=== PATIENT | male | born 1975 | race Caucasian/White ===

== ENCOUNTER 2022-08-04 14:17 | Outpatient (CLI) | payer MEDICARE, OTHER | END 2022-08-04 14:18 | disposition home or self-care (01) | LOC: RAD 14:17 | PROVIDERS: ATTEND Internal Medicine Critical Care Medicine | DX: R06.00 Dyspnea, unspecified (principal); J98.4 Other disorders of lung | CPT/HCPCS: 71046 ==

== ENCOUNTER 2024-07-15 13:09 | Outpatient (CLI) | payer MEDICARE, MEDICAID | END 2024-07-15 13:10 | disposition home or self-care (01) | LOC: RAD 13:09 | PROVIDERS: ATTEND Internal Medicine Critical Care Medicine | DX: R06.00 Dyspnea, unspecified (principal) | CPT/HCPCS: 71046 ==

== ENCOUNTER 2024-08-28 13:44 | Inpatient (IN) | payer MEDICARE, MEDICAID ==
[~2024-08-28 13:44] MED LIST: Azithromycin 500 MG VIAL ONE; Cefepime 2 GM VIAL ONE
[2024-08-29] MEDS ORDERED: Piperacillin/Tazobactam 3.375 GM VIAL ONE ×2 (10:25→14:18)
[2024-08-29] MEDS ORDERED: Vancomycin 1 GM/200 ML (FROZEN) BAG ONE (11:07)
[2024-08-29] MEDS ORDERED: Ondansetron ODT 4 MG TAB PO PRN (17:08)
[2024-08-29] MEDS ORDERED: Guaifenesin DM 100-10/5 ML UDCUP PO PRN (17:08)
[2024-08-29] MEDS ORDERED: Senokot S 8.6-50 MG TAB PO PRN (17:18)
[2024-08-29 18:15] VITALS: BMI 19.9
[2024-08-29] MEDS: Sodium Chloride 0.9% 100 ML ONE ×3 (19:01→19:02)
[2024-08-29] MEDS: Cefepime 2 GM VIAL ONE (19:01)
[2024-08-29] MEDS: Azithromycin 500 MG VIAL ONE (19:01)
[2024-08-29] MEDS: Piperacillin/Tazobactam 3.375 GM VIAL ONE ×2 (19:02)
[2024-08-29] MEDS: Vancomycin 1 GM/200 ML (FROZEN) BAG ONE (19:02)
[2024-08-29] MEDS: Piperacillin/Tazobactam 3.375 GM in Sodium Chloride 0.9% 100 ML IVPB SCH (21:52)
[2024-08-30] MEDS: Levothyroxine Sodium 50 MCG TAB PO SCH (06:02)
[2024-08-30] MEDS ORDERED: Piperacillin/Tazobactam 3.375 GM VIAL ONE (06:05)
[2024-08-30] MEDS ORDERED: Levothyroxine Sodium 50 MCG TAB ONE (06:05)
[2024-08-30 06:55] LABS: #Basophils 0.06 10x3/uL (0.0-0.2); #Eosinophils 0.06 10x3/uL (0.0-0.7); #Monocytes 0.91 10x3/uL (0.11-0.59); #Neutrophils 11.58 10x3/uL (1.40-6.50); %Basophils 0.4 % (0.0-1.0); %Eosinophils 0.4 % (0.0-10.0); %Lymphocytes 7.7 % (21.0-51.0); %Monocytes 6.6 % (0.0-10.0); %Neutrophils 84.1 % (42.0-75.0); Hematocrit 38.9 % (42.0-52.0); Hemoglobin 13.3 g/dL (14.0-18.0); Mean Corpuscular HGB CONC 34.2 g/dL (32.0-36.0); Mean Corpuscular Hemoglobin 32.9 pg (27.0-31.0); Mean Corpuscular Volume 96.3 fL (78.0-98.0); Mean Platelet Volume 10.6 fL (7.4-10.4); Platelet Count 248 10x3/uL (130-400); RBC Distribution Width 14.4 % (11.5-14.5); Red Blood Cell (RBC) Count 4.04 mill/uL (4.70-6.10); White Blood Cell (WBC) Count 13.78 10x3/uL (4.8-10.8)
[2024-08-30 08:09] LABS: Anion Gap 10 mmol/L (10-20); BUN (Urea Nitrogen) 20 mg/dL (8.9-20.6); Calc. Creatinine Clearance 58 mL/min (70-130); Calcium 8.4 mg/dL (7.8-10.44); Carbon Dioxide 26 mmol/L (22-29); Chloride 105 mmol/L (98-107); Estimated GFR 98; Glucose 101 mg/dL (70-105); Potassium 4.3 mmol/L (3.5-5.1); Sodium 137 mmol/L (136-145)
[2024-08-30 08:11] LABS: Lactic Acid 0.95 mmol/L (0.5-2.2)
[2024-08-30 08:30] LABS: #Basophils 0.04 10x3/uL (0.0-0.2); %Basophils 0.8 % (0.0-1.0); %Eosinophils 3.9 % (0.0-10.0); %Lymphocytes 44.7 % (21.0-51.0); %Monocytes 7.7 % (0.0-10.0); %Neutrophils 42.3 % (42.0-75.0); Hematocrit 38.9 % (42.0-52.0); Hemoglobin 12.9 g/dL (14.0-18.0); Mean Corpuscular HGB CONC 33.2 g/dL (32.0-36.0); Mean Corpuscular Volume 96.5 fL (78.0-98.0); Mean Platelet Volume 10.3 fL (7.4-10.4); Platelet Count 228 10x3/uL (130-400); RBC Distribution Width 14.1 % (11.5-14.5); Red Blood Cell (RBC) Count 4.03 mill/uL (4.70-6.10)
[2024-08-30 08:56] LABS: Anion Gap 10 mmol/L (10-20); BUN (Urea Nitrogen) 19 mg/dL (8.9-20.6); Calc. Creatinine Clearance 45 mL/min (70-130); Calcium 8.4 mg/dL (7.8-10.44); Carbon Dioxide 26 mmol/L (22-29); Chloride 104 mmol/L (98-107); Estimated GFR 73; Glucose 101 mg/dL (70-105); Potassium 4.1 mmol/L (3.5-5.1); Sodium 136 mmol/L (136-145)
[2024-08-30] MEDS: Vancomycin 1 GM in Premix 1 BAG IVPB SCH (14:06)
[2024-08-30] MEDS: FLU (Fluarix Triv) TS24-25(6MOS UP)/PF 45 MCG/0.5 ML Syringe IM ONE (14:15)
[2024-08-30 16:01] LABS: Anion Gap 12 mmol/L (10-20); BUN (Urea Nitrogen) 19 mg/dL (8.9-20.6); Calc. Creatinine Clearance 59 mL/min (70-130); Calcium 8.6 mg/dL (7.8-10.44); Carbon Dioxide 23 mmol/L (22-29); Chloride 106 mmol/L (98-107); Estimated GFR 99; Glucose 107 mg/dL (70-105); Lactic Acid 2.14 mmol/L (0.5-2.2); Potassium 4.3 mmol/L (3.5-5.1); Sodium 137 mmol/L (136-145)
[2024-08-30 18:19] LABS: #Basophils 0.04 10x3/uL (0.0-0.2); %Basophils 0.4 % (0.0-1.0); %Eosinophils 0.6 % (0.0-10.0); %Monocytes 3.9 % (0.0-10.0); %Neutrophils 77.7 % (42.0-75.0); Hematocrit 39.8 % (42.0-52.0); Hemoglobin 13.3 g/dL (14.0-18.0); Mean Corpuscular HGB CONC 33.4 g/dL (32.0-36.0); Mean Corpuscular Hemoglobin 32.1 pg (27.0-31.0); Mean Corpuscular Volume 96.1 fL (78.0-98.0); Mean Platelet Volume 10.4 fL (7.4-10.4); Platelet Count 264 10x3/uL (130-400); RBC Distribution Width 14.5 % (11.5-14.5); Red Blood Cell (RBC) Count 4.14 mill/uL (4.70-6.10)
[2024-08-31] MEDS: Vancomycin HCl 500 MG in Sodium Chloride 0.9% 100 ML IVPB SCH (00:50)
[2024-08-31] MEDS: Cefepime 1 GM in Sodium Chloride 0.9% 100 ML IVPB SCH (15:27)
[2024-08-31] MEDS: LevoFLOXacin 750 mg/D5W 750 MG in Premix 1 BAG IVPB SCH ×2 (16:53→17:06)
[2024-08-31] MEDS: Acetaminophen 325 MG TAB PO PRN (20:46)
[2024-09-01] MEDS: Floranex 1 GM Packet PO SCH (08:40)
[2024-09-01 09:52] LABS: #Basophils 0.04 10x3/uL (0.0-0.2); %Basophils 0.7 % (0.0-1.0); %Lymphocytes 50.3 % (21.0-51.0); %Monocytes 6.2 % (0.0-10.0); %Neutrophils 36.6 % (42.0-75.0); Hematocrit 39.1 % (42.0-52.0); Hemoglobin 13.2 g/dL (14.0-18.0); Mean Corpuscular HGB CONC 33.8 g/dL (32.0-36.0); Mean Corpuscular Volume 94.7 fL (78.0-98.0); Mean Platelet Volume 10.5 fL (7.4-10.4); Platelet Count 233 10x3/uL (130-400); RBC Distribution Width 14.1 % (11.5-14.5); Red Blood Cell (RBC) Count 4.13 mill/uL (4.70-6.10)
[2024-09-01 10:10] LABS: Anion Gap 13 mmol/L (10-20); BUN (Urea Nitrogen) 16 mg/dL (8.9-20.6); Calc. Creatinine Clearance 58 mL/min (70-130); Calcium 8.6 mg/dL (7.8-10.44); Carbon Dioxide 24 mmol/L (22-29); Chloride 105 mmol/L (98-107); Estimated GFR 97; Glucose 77 mg/dL (70-105); Sodium 138 mmol/L (136-145)
[2024-09-01] MEDS: Cefepime 2 GM in Sodium Chloride 0.9% 100 ML IVPB SCH (11:52)
[2024-09-01] MEDS: LevoFLOXacin 750 mg/D5W 750 MG in Premix 1 BAG IVPB SCH (17:18)
[2024-09-02 04:37] LABS: Vancomycin, Random 28.6 ug/mL (See Comment)
[2024-09-02 07:54] VITALS: TEMP 97.5
[2024-09-02 14:27] VITALS: BP 115/82
[2024-09-03] MEDS ORDERED: LevoFLOXacin 750 mg/D5W 750 MG in Premix 1 BAG IVPB SCH (17:00)
== END 2024-09-02 14:16 | disposition home or self-care (01) | DRG 689 ==
LOC: T4-B 13:44 → UNDODISIN 14:47
PROVIDERS: ADMIT Internal Medicine; ATTEND Hospitalist
DX: N39.0 Urinary tract infection, site not specified (principal); G93.41 Metabolic encephalopathy; J18.9 Pneumonia, unspecified organism; E03.9 Hypothyroidism, unspecified; Z98.890 Other specified postprocedural states; Q90.9 Down syndrome, unspecified; Z79.899 Other long term (current) drug therapy
CPT/HCPCS: 36415; 70450; 71045; 80048; 80202; 82565; 83605; 84145; 85025; 87040; 87081; J0456; J0692; J1956; J2543; J3370; J3370-JW

== ENCOUNTER 2024-09-03 10:52 | Inpatient (IN) | payer MEDICARE, MEDICAID ==
[2024-09-03] MEDS ORDERED: LORazepam 2 MG/ML SYR.(CARPUJECT) ONE (11:34)
[2024-09-03 12:05] LABS: #Basophils 0.05 10x3/uL (0.0-0.2); %Basophils 0.8 % (0.0-1.0); %Eosinophils 1.8 % (0.0-10.0); %Lymphocytes 31.9 % (21.0-51.0); %Monocytes 6.1 % (0.0-10.0); %Neutrophils 59.1 % (42.0-75.0); Hematocrit 39.2 % (42.0-52.0); Hemoglobin 13.5 g/dL (14.0-18.0); Mean Corpuscular HGB CONC 34.4 g/dL (32.0-36.0); Mean Corpuscular Hemoglobin 32.6 pg (27.0-31.0); Mean Corpuscular Volume 94.7 fL (78.0-98.0); Mean Platelet Volume 9.7 fL (7.4-10.4); Platelet Count 231 10x3/uL (130-400); Red Blood Cell (RBC) Count 4.14 mill/uL (4.70-6.10)
[2024-09-03 12:20] LABS: Acetaminophen Less than 10 mcg/mL (Less than 10); Alcohol Less than 10.0 mg/dL (Less than 10); Salicylate Less than 8.0 mg/dL (Less than 8.0)
[2024-09-03 12:21] LABS: ALT (SGPT) 21 U/L (8-55); AST (SGOT) 19 U/L (5-34); Albumin 2.8 g/dL (3.5-5.0); Alkaline Phosphatase 223 U/L (40-110); Anion Gap 10 mmol/L (10-20); BUN (Urea Nitrogen) 16 mg/dL (8.9-20.6); Bilirubin, Total 0.2 mg/dL (0.2-1.2); Calc. Creatinine Clearance 0 mL/min (70-130); Calcium 8.3 mg/dL (7.8-10.44); Carbon Dioxide 25 mmol/L (22-29); Chloride 103 mmol/L (98-107); Estimated GFR 93; Globulin 4.2 g/dL (2.4-3.5); Glucose 94 mg/dL (70-105); Potassium 3.9 mmol/L (3.5-5.1); Sodium 134 mmol/L (136-145)
[2024-09-03 13:26] LABS: Troponin I Less than 0.010 ng/mL (< 0.028)
[2024-09-03] MEDS ORDERED: Sodium Chloride 0.9% 100 ML ONE (13:45)
[2024-09-03] MEDS ORDERED: Cefepime 2 GM VIAL ONE (13:45)
[2024-09-03] MEDS ORDERED: Benzonatate 100 MG CAP PO PRN (17:27)
[2024-09-03] MEDS ORDERED: Bisacodyl 10 MG SUPP PR PRN (17:28)
[2024-09-03] MEDS ORDERED: Ondansetron ODT 4 MG TAB PO PRN (17:28)
[2024-09-03] MEDS ORDERED: Ipratropium/Albuterol 3 ML NEB NEB PRN (17:28)
[2024-09-03] MEDS ORDERED: Acetaminophen 325 MG TAB PO PRN (17:28)
[2024-09-03] MEDS ORDERED: Ondansetron PF 4 MG/2 ML Vial IVP PRN (17:28)
[2024-09-03] MEDS ORDERED: Acetaminophen 650 MG Suppository PR PRN (17:28)
[2024-09-03] MEDS ORDERED: Senokot S 8.6-50 MG TAB PO PRN (17:28)
[2024-09-03] MEDS ORDERED: Lorazepam 2 MG/ML VIAL SLOW IVP PRN (17:28)
[2024-09-04] MEDS: Cefepime 1 GM in Sodium Chloride 0.9% 100 ML IVPB SCH (02:19)
[2024-09-04 05:52] VITALS: BMI 17.9
[2024-09-04 08:12] LABS: #Basophils 0.05 10x3/uL (0.0-0.2); %Basophils 0.9 % (0.0-1.0); %Lymphocytes 44.8 % (21.0-51.0); %Monocytes 6.3 % (0.0-10.0); %Neutrophils 44.6 % (42.0-75.0); Hematocrit 38.5 % (42.0-52.0); Hemoglobin 13.2 g/dL (14.0-18.0); Mean Corpuscular HGB CONC 34.3 g/dL (32.0-36.0); Mean Corpuscular Hemoglobin 32.1 pg (27.0-31.0); Mean Corpuscular Volume 93.7 fL (78.0-98.0); Mean Platelet Volume 9.8 fL (7.4-10.4); Platelet Count 217 10x3/uL (130-400); Red Blood Cell (RBC) Count 4.11 mill/uL (4.70-6.10)
[2024-09-04 08:33] LABS: Anion Gap 13 mmol/L (10-20); BUN (Urea Nitrogen) 11 mg/dL (8.9-20.6); Calc. Creatinine Clearance 66 mL/min (70-130); Calcium 8.6 mg/dL (7.8-10.44); Carbon Dioxide 25 mmol/L (22-29); Chloride 107 mmol/L (98-107); Estimated GFR 108; Glucose 88 mg/dL (70-105); Potassium 3.7 mmol/L (3.5-5.1); Sodium 141 mmol/L (136-145)
[2024-09-04] MEDS: Acidophilus Lactiobac CAPSULE PO SCH (12:04)
[2024-09-05] MEDS: Saccharomyces boulardii 250 MG CAP PO SCH (08:52)
[2024-09-05 14:34] VITALS: BMI 19.8
[2024-09-05] MEDS: Lorazepam 2 MG/ML VIAL SLOW IVP SCH (14:37)
[2024-09-06] MEDS: Levothyroxine Sodium 50 MCG TAB PO SCH (06:36)
[2024-09-06] MEDS ORDERED: Lorazepam 2 MG/ML VIAL SLOW IVP SCH (09:15)
[2024-09-06] MEDS: QUEtiapine 25 MG TAB PO SCH (21:51)
[2024-09-07 11:05] LABS: #Basophils 0.06 10x3/uL (0.0-0.2); %Basophils 0.8 % (0.0-1.0); %Eosinophils 1.5 % (0.0-10.0); %Lymphocytes 37.3 % (21.0-51.0); %Monocytes 7.1 % (0.0-10.0); %Neutrophils 52.9 % (42.0-75.0); Hematocrit 40.1 % (42.0-52.0); Hemoglobin 13.6 g/dL (14.0-18.0); Mean Corpuscular HGB CONC 33.9 g/dL (32.0-36.0); Mean Corpuscular Hemoglobin 32.5 pg (27.0-31.0); Mean Corpuscular Volume 95.9 fL (78.0-98.0); Mean Platelet Volume 9.5 fL (7.4-10.4); Platelet Count 193 10x3/uL (130-400); RBC Distribution Width 14.2 % (11.5-14.5); Red Blood Cell (RBC) Count 4.18 mill/uL (4.70-6.10)
[2024-09-07 11:49] LABS: Anion Gap 14 mmol/L (10-20); BUN (Urea Nitrogen) 20 mg/dL (8.9-20.6); Calc. Creatinine Clearance 64 mL/min (70-130); Calcium 8.7 mg/dL (7.8-10.44); Carbon Dioxide 24 mmol/L (22-29); Chloride 106 mmol/L (98-107); Estimated GFR 107; Glucose 77 mg/dL (70-105); Magnesium 2.2 mg/dL (1.6-2.6); Phosphorus 3.4 mg/dL (2.3-4.7); Potassium 4.1 mmol/L (3.5-5.1); Sodium 140 mmol/L (136-145)
[2024-09-07] MEDS: metroNIDAZOLE 500 MG TAB PO SCH (15:41)
[2024-09-07] MEDS: Melatonin 3 MG TAB PO SCH (21:00)
[2024-09-07] MEDS: Lorazepam 2 MG/ML VIAL SLOW IVP SCH (22:05)
[2024-09-08] MEDS: levETIRAcetam 500 MG TAB PO SCH (16:56)
[2024-09-08] MEDS ORDERED: levETIRAcetam 500 MG TAB PO SCH (21:00)
[2024-09-09] MEDS: Enoxaparin 30 MG (0.3 mL) SYRINGE SC SCH (20:04)
[2024-09-10] MEDS ORDERED: Dexamethasone 20 MG/5 ML VIAL ONE (12:50)
[2024-09-10] MEDS ORDERED: ePHEDrine Sulfate 50 MG/10 ML VIAL ONE (12:50)
[2024-09-10] MEDS ORDERED: PROPOFOL 200 MG/20 ML VIAL ONE (12:50)
[2024-09-10] MEDS ORDERED: Ondansetron PF 4 MG/2 ML Vial ONE (12:50)
[2024-09-10] MEDS ORDERED: Lidocaine 1% PF 5 ML VIAL ONE (12:50)
[2024-09-10] MEDS: levETIRAcetam 500 MG TAB PO SCH (16:20)
[2024-09-10 16:46] VITALS: BP 91/57; TEMP 97.3
[2024-09-10] MEDS ORDERED: levETIRAcetam 500 MG TAB PO SCH (21:00)
== END 2024-09-10 18:42 | disposition home or self-care (01) | DRG 100 ==
LOC: ERS 10:52 → ERHOLD 14:35 → IMCU/EMU 18:54 → OBSVTOIN 09-04 11:40 → T4-A 09-04 22:07
PROVIDERS: ADMIT Family Medicine; ATTEND Family Medicine
PROC: 4A00X4Z Measurement of Central Nervous Electrical Activity, External Approach (ICD-10-PCS; principal; 2024-09-03)
DX: G40.909 Epilepsy, unspecified, not intractable, without status epilepticus (principal); G93.41 Metabolic encephalopathy; J69.0 Pneumonitis due to inhalation of food and vomit; E87.1 Hypo-osmolality and hyponatremia; N39.0 Urinary tract infection, site not specified; E03.9 Hypothyroidism, unspecified; Q90.9 Down syndrome, unspecified; Z79.899 Other long term (current) drug therapy; Z98.890 Other specified postprocedural states
CPT/HCPCS: 36415; 70450; 70551; 71045; 80048; 80053; 80307; 83735; 83880; 84100; 84145; 84146; 84484; 85025; 93005; 96365; 96375; 96376; G0378; J0692; J1100; J1650; J2060; J2405; J2704

== ENCOUNTER 2025-07-12 14:02 | Emergency (ER) | payer MEDICARE, OTHER ==
[2025-07-12 15:20] LABS: #Basophils 0.04 10x3/uL (0.0-0.2); #Eosinophils 0.14 10x3/uL (0.0-0.7); #Monocytes 0.61 10x3/uL (0.11-0.59); #Neutrophils 5.96 10x3/uL (1.40-6.50); %Basophils 0.4 % (0.0-1.0); %Eosinophils 1.4 % (0.0-10.0); %Lymphocytes 30.0 % (21.0-51.0); %Monocytes 6.3 % (0.0-10.0); %Neutrophils 61.6 % (42.0-75.0); Hematocrit 38.5 % (42.0-52.0); Hemoglobin 12.8 g/dL (14.0-18.0); Mean Corpuscular Hemoglobin 32.1 pg (27.0-31.0); Mean Corpuscular Volume 96.5 fL (78.0-98.0); Platelet Count 226 10x3/uL (130-400); Red Blood Cell (RBC) Count 3.99 mill/uL (4.70-6.10); White Blood Cell (WBC) Count 9.68 10x3/uL (4.8-10.8)
[2025-07-12 15:53] LABS: ALT (SGPT) 17 U/L (Less than 45); AST (SGOT) 22 U/L (11-34); Albumin 2.8 g/dL (3.1-4.5); Alkaline Phosphatase 95 U/L (40-110); Anion Gap 10 mmol/L (10-20); BUN (Urea Nitrogen) 22 mg/dL (8.9-20.6); Bilirubin, Total 0.2 mg/dL (0.3-1.2); Calc. Creatinine Clearance 0 mL/min (70-130); Calcium 9.1 mg/dL (7.8-10.44); Carbon Dioxide 29 mmol/L (22-29); Chloride 109 mmol/L (98-107); Globulin 3.9 g/dL (2.4-3.5); Glucose 93 mg/dL (70-105); Potassium 4.0 mmol/L (3.5-5.1); Sodium 144 mmol/L (136-145)
[2025-07-12 16:15] LABS: Free T4 (Free Thyroxine) 1.96 ng/dL (0.70-1.48); Thyroid Stimulating Hormone Less than 0.0083 uIU/mL (0.35-4.94)
[2025-07-12 20:15] LABS: Bacteria/HPF 3+ HPF (None Seen); CAUTI Indications for Culture Alt mental st,lethar; Glucose, Urine (Dipstick) Normal (Negative); Leukocyte 500 Leu/uL (Negative); Protein, Urine (Dipstick) 70 mg/dL (Neg-Trace); RBC/HPF Greater than 50 HPF (0-3); Specific Gravity, Urine 1.019 (1.002-1.036); WBC/HPF Greater than 50 HPF (0-3)
[2025-07-12 20:18] LABS: Urine Culture Reflex Yes Yes
[2025-07-12] MEDS ORDERED: cefTRIAXone (ROCEPHIN) 1 GM VIAL ONE (21:22)
== END 2025-07-13 01:24 | disposition home or self-care (01) ==
LOC: ERS 14:02
DX: N39.0 Urinary tract infection, site not specified (principal); D64.9 Anemia, unspecified; E03.9 Hypothyroidism, unspecified; Z79.890 Hormone replacement therapy
CPT/HCPCS: 71045; 80053; 81001; 83605; 84439; 84443; 84484; 85025; 87077; 87086; 87186; 87428; 93005; 94760; 96374; J0696